=== PATIENT | female | born 1980 | race Caucasian/White ===

== ENCOUNTER 2017-02-12 22:52 | Emergency (ER) | payer MEDICAID, OTHER ==
[~2017-02-12] VITALS: Ht 157.5 cm; Wt 52.2 kg
[~2017-02-12 22:52] MED LIST: ALBU8.5H2 IH; HYDR-3326 PO; LORA0.5T PO
--- NOTE | 2017-02-12 23:58 | NUR ---
Patient discharged to home in stable conditon. Written and verbal after care instructions given. Patient verbalizes understanding of instructions. Ambulated from ER with stable gait . All belongings with patient.
[2017-02-13] MEDS ORDERED: DOXYCYCLINE HYCLATE 100 MG TABLET PO ONE
[2017-02-13] MEDS ORDERED: predniSONE 20 MG TABLET PO ONE
[2017-02-13] MEDS ORDERED: DOXYCYCLINE HYCLATE 100 MG TABLET ONE (00:01)
[2017-02-13] MEDS ORDERED: predniSONE 10 MG TABLET ONE (00:01)
[2017-02-13] MEDS ORDERED: predniSONE 50 MG TABLET ONE (00:02)
[2017-02-13 00:10] VITALS: BP 131/65
== END 2017-02-13 00:11 | disposition home or self-care (01) ==
LOC: ER 22:52
DX: L25.0 Unspecified contact dermatitis due to cosmetics (principal); L70.8 Other acne; F10.20 Alcohol dependence, uncomplicated
CPT/HCPCS: 99283; A4663; J7512 ×2

== ENCOUNTER 2017-12-02 19:43 | Emergency (ER) | payer MEDICAID ==
[~2017-12-02] VITALS: Ht 157.5 cm; Wt 54.4 kg
[~2017-12-02 19:43] MED LIST changes: -ALBU8.5H2 IH; +ALBU8.5H8 IH
--- NOTE | 2017-12-02 20:02 | NUR ---
Pt c/o headache x3 days w/ pressure behind her eyes. Also c/o sensitivity to light. Denies nausea/vomiting, or previous history of headaches/migraines.
[2017-12-02] MEDS ORDERED: KETOROLAC TROMETHAMINE 30 MG INJ IM ONE (20:15)
[2017-12-02] MEDS ORDERED: KETOROLAC TROMETHAMINE 30 MG INJ ONE (20:29)
--- NOTE | 2017-12-02 20:55 | NUR ---
Patient discharged to home in stable conditon. Written and verbal after care instructions given. Patient verbalizes understanding of instructions. Ambulatory w/ steady gait. Pt took all belongings.
[2017-12-02 20:57] VITALS: BP 113/71
== END 2017-12-02 20:58 | disposition home or self-care (01) ==
LOC: ER 19:45
DX: R51 Headache (principal)
CPT/HCPCS: 96372; 99283; A4663; J1885

== ENCOUNTER 2018-01-26 08:01 | Emergency (ER) | payer MEDICAID ==
[~2018-01-26] VITALS: Ht 157.5 cm; Wt 54.4 kg
[2018-01-26 08:24] LABS: *BLOOD, URINE 3+ (NEGATIVE); *CLARITY,URINE CLOUDY (CLEAR); *COLOR,URINE Brown (YELLOW); *KETONES,URINE NEGATIVE (NEGATIVE); LEUKOCYTE ESTERASE ,URINE 1+ (NEGATIVE); NITRITE, URINE NEGATIVE (NEGATIVE); PH,URINE 6.5 (5.0-8.0); UGLUCOSE NEGATIVE (NEGATIVE)
[2018-01-26 08:39] LABS: *PROTEIN,URINE 3+ (NEGATIVE)
[2018-01-26 08:40] LABS: *BILIRUBIN,URIN 1+ (NEGATIVE)
[2018-01-26 08:44] LABS: BACTERIA,URINE MODERATE /HPF (NONE SEEN); RBC,URINE TNTC /HPF (0-3); SQUAMOUS EPITHELIAL CELL,UR FEW /HPF (NONE SEEN); WBC,URINE 20-50 /HPF (0-3)
[2018-01-26] MEDS ORDERED: CEFTRIAXONE 500 MG VIAL IM ONE (08:45)
[2018-01-26] MEDS ORDERED: PHENAZOPYRIDINE HCL 100 MG TABLET PO ONE (08:45)
[2018-01-26] MEDS ORDERED: CEFTRIAXONE 500 MG VIAL ONE (08:50)
[2018-01-26] MEDS ORDERED: PHENAZOPYRIDINE HCL 100 MG TABLET ONE (08:51)
[2018-01-26] MEDS ORDERED: LIDOCAINE HCL 2% 20 ML VIAL ONE (08:51)
--- NOTE | 2018-01-26 09:19 | NUR ---
Patient discharged to home in stable conditon. Written and verbal after care instructions given. Patient verbalizes understanding of instructions.
[2018-01-26 11:51] LABS: *URINE HCG, QUAL NEGATIVE (NEGATIVE)
== END 2018-01-26 09:20 | disposition home or self-care (01) ==
LOC: ER 08:01
DX: N39.0 Urinary tract infection, site not specified (principal); Z79.891 Long term (current) use of opiate analgesic; Z79.899 Other long term (current) drug therapy
CPT/HCPCS: 84703; 87077; 87086; A4663; J0696; J3490

== ENCOUNTER 2019-11-03 20:38 | Emergency (ER) | payer MEDICAID ==
[~2019-11-03] VITALS: Ht 157.5 cm; Wt 52.2 kg
[2019-11-03] MEDS ORDERED: EUCA1LOZ37 MM (20:51)
[2019-11-03] MEDS ORDERED: GUAI600T53 PO (20:51)
--- NOTE | 2019-11-03 21:42 | NUR ---
Dr. Strickland at bedside for MSE.
--- NOTE | 2019-11-03 22:19 | NUR ---
Patient discharged to home in stable conditon. Written and verbal after care instructions given. Patient verbalizes understanding of instructions. Pt ambulated out of ER with steady gait, no acute signs of distress, VSS, all belongings taken.
[2019-11-03 22:20] VITALS: BP 116/83
== END 2019-11-03 22:20 | disposition home or self-care (01) ==
LOC: ER 20:38
DX: J06.9 Acute upper respiratory infection, unspecified (principal); Z79.899 Other long term (current) drug therapy
CPT/HCPCS: A4663